=== PATIENT | male | born 1960 | race Caucasian/White ===

== ENCOUNTER 2024-04-17 09:59 | Emergency (ER) | payer OTHER, SELFPAY ==
[2024-04-17] MEDS ORDERED: HYDROcodone/Acetaminophen 5/325 mg Tablet ONE (10:21)
== END 2024-04-17 11:22 | disposition home or self-care (01) ==
LOC: MADERS 09:59
DX: S22.41XA Multiple fractures of ribs, right side, initial encounter for closed fracture (principal); I12.9 Hypertensive chronic kidney disease with stage 1 through stage 4 chronic kidney disease, or unspecified chronic kidney disease; N18.9 Chronic kidney disease, unspecified; I25.10 Atherosclerotic heart disease of native coronary artery without angina pectoris; Z79.899 Other long term (current) drug therapy; Z79.82 Long term (current) use of aspirin; W01.198A Fall on same level from slipping, tripping and stumbling with subsequent striking against other object, initial encounter
CPT/HCPCS: 94799; 99283

== ENCOUNTER 2024-11-24 09:48 | Outpatient (CLI) | payer MEDICARE, MEDICAID ==
[2024-11-24 10:23] LABS: Glucose, Urine (Dipstick) Negative (Negative); Leukocyte Negative (Negative); Protein, Urine (Dipstick) 100 mg/dL (Neg-Trace); Specific Gravity, Urine 1.020 (1.005-1.030)
[2024-11-24 10:25] LABS: Albumin 4.3 g/dL (3.1-4.5); Anion Gap 14 mmol/L (10-20); BUN (Urea Nitrogen) 48 mg/dL (8.4-25.7); Calc. Creatinine Clearance 0 mL/min (70-130); Calcium 9.7 mg/dL (7.8-10.44); Carbon Dioxide 19 mmol/L (23-31); Chloride 109 mmol/L (98-107); Glucose 105 mg/dL (80-115); Magnesium 1.8 mg/dL (1.6-2.6); Potassium 5.3 mmol/L (3.5-5.1); Sodium 137 mmol/L (136-145)
[2024-11-24 10:38] LABS: #Basophils 0.1 thou/uL (0.0-0.2); #Eosinophils 0.2 thou/uL (0.0-0.7); #Lymphocytes 1.8 thou/uL (1.20-3.40); #Monocytes 0.5 thou/uL (0.11-0.59); #Neutrophils 3.4 thou/uL (1.40-6.50); %Basophils 1.1 % (0.0-1.0); %Eosinophils 3.0 % (0.0-10.0); %Lymphocytes 30.0 % (21.0-51.0); %Monocytes 8.1 % (0.0-10.0); %Neutrophils 57.9 % (42.0-75.0); Hematocrit 37.9 % (42.0-52.0); Hemoglobin 12.0 g/dL (14.0-18.0); MDiff Complete? YES; Macrocytosis SLIGHT = 6-15 cells (100X) (0-5/hpf); Mean Corpuscular Hemoglobin 33.3 pg (27.0-31.0); Mean Corpuscular Volume 105.3 fl (78.0-98.0); Platelet Adequacy Comment Appears Adequate; Platelet Count 236 10x3/uL (130-400); Red Blood Cell (RBC) Count 3.59 mill/uL (4.70-6.10); White Blood Cell (WBC) Count 5.8 10x3/uL (4.8-10.8)
[2024-11-24 16:55] LABS: Protein, Urine Random Quant 133.0 mg/dL (1-14)
== END 2024-11-24 09:49 | disposition home or self-care (01) ==
LOC: MADLAB 09:48
PROVIDERS: ATTEND Internal Medicine Nephrology
DX: I12.9 Hypertensive chronic kidney disease with stage 1 through stage 4 chronic kidney disease, or unspecified chronic kidney disease (principal); N18.30 Chronic kidney disease, stage 3 unspecified; E78.6 Lipoprotein deficiency
CPT/HCPCS: 36415; 80048; 81003; 82040; 82043; 82306; 83735; 83970; 84100; 84156; 85025